=== PATIENT | female | born 1995 | race Caucasian/White ===

== ENCOUNTER 2018-08-01 07:05 | Inpatient (IN) | payer BC ==
[~2018-08-01] VITALS: Ht 177.8 cm; Wt 132.4 kg
[2018-08-01] VITALS (53 sets, daily range): BP systolic 114–148; BP diastolic 54–94
--- NOTE | 2018-08-01 07:15 | NUR ---
MIKE CRESPO presented to unit via AMBULATORY, accompanied by , FOR SCHEDULED INDUCTION OF LABOR. MIKE CRESPO weighed, gowned, voided, and to bed. EFHM and TOCO applied, VS taken. MIKE CRESPO oriented to bed controls, call light, TV, heat, and A/C controls.
--- NOTE | 2018-08-01 07:20 | NUR ---
THIS RN INTRODUCES SELF TO PT AND SO. PLAN OF CARE REVIEWED. QUESTIONS ANSWERED. CALL LIGHT WITHIN REACH.
[2018-08-01] MEDS ORDERED: D5 LR IV SOLUTION 1,000 ML IV ONE (07:36)
--- NOTE | 2018-08-01 08:04 | NUR ---
DR RANGEL CALLED BY THIS RN. PT REPORT. INDUCTION ORDERS RECEIVED. PITOCIN, GBS PROTOCOL WITH AMP, MAY GET EPIDURAL WHENEVER PT WANTS. DR RANGEL WILL SEE IF DR BENAVIDES IS AVAILABLE FOR AROM AROUND NOON TODAY.
[2018-08-01] MEDS ORDERED: AMPICILLIN FOR IV USE 2,000 MG in WATER (STERILE) FOR INJECTION 14.8 ML IV SCH (08:10)
[2018-08-01] MEDS ORDERED: D5 LR IV SOLUTION 1,000 ML IV SCH (08:10)
[2018-08-01] MEDS ORDERED: OXYTOCIN/NORMAL SALINE 500 ML IV SCH (08:10)
[2018-08-01] MEDS ORDERED: MINERAL OIL CONCENTRATE 99.9% 15 ML UDC TOP PRN (08:15)
[2018-08-01 08:17] LABS: BASOPHILS % (AUTO) 0 % (0-10); EOSINOPHILS # (AUTO) 0.1 10^3/uL (0.0-0.3); EOSINOPHILS % (AUTO) 1 % (0-10); HEMATOCRIT 39 % (35-52); HEMOGLOBIN 13.4 G/DL (11.5-16.0); LYMPHOCYTES # (AUTO) 2.3 X 10^3 (1.0-4.0); LYMPHOCYTES % (AUTO) 27 % (12-44); MEAN CORPUSCULAR HEMOGLOBIN 31 PG (25-34); MEAN CORPUSCULAR HGB CONC 34 G/DL (32-36); MEAN CORPUSCULAR VOLUME 90 FL (80-99); MEAN PLATELET VOLUME 9.7 FL (7.4-10.4); MONOCYTES # (AUTO) 0.5 X 10^3 (0.0-1.0); MONOCYTES % (AUTO) 6 % (0-12); NEUTROPHILS # (AUTO) 5.8 X 10^3 (1.8-7.8); NEUTROPHILS % (AUTO) 67 % (42-75); PLATELET COUNT 261 10^3/uL (130-400); RED CELL DISTRIBUTION WIDTH 12.8 % (10.0-14.5); WHITE BLOOD COUNT 8.7 10^3/uL (4.3-11.0)
[2018-08-01] MEDS ORDERED: FLU QUADRIvalent (5+ YOA) 2018-2019 (AFLURIA) 0.5 ML IM ONE (09:15)
--- NOTE | 2018-08-01 10:14 | NUR ---
dr dhillon called this rn for updated pt report. uc q2min pitocin on 10. pt feeling uc but not co pain at this time. no new orders.
[2018-08-01] MEDS ORDERED: SUFENTA 0.6MCG/ML BUPIVA 0.125 100 ML ONE (10:52)
--- NOTE | 2018-08-01 11:00 | NUR ---
DR BENAVIDES AT BEDSIDE FOR SVE AND AROM. THIN [facility]. NO NEW ORDERS. PT REQUESTS EPIDURAL AT THIS TIME. ANESTHESIA (ASHOK DAVISON) CALLED AT [phone] FOR EPIDURAL PLACEMENT
[2018-08-01] MEDS ORDERED: fentaNYL INJECTION 100 MCG/2 ML AMP ONE (11:22)
--- NOTE | 2018-08-01 11:51 | Labor Progress Note ---
Labor Progress Note Labor Progress Note Date Seen by Provider: Aug 01, 2018 Time Seen by Provider: 11:00 Subjective: Pt denies complaints. Objective: Cervical exam: /- Presentation: cephalic heart tones: 140 beats per minute, moderate variability, reactive Tocometer: 4-5 ctx/10 minutes Assessment/Plan: Edith Lea is a (22 /Para / ,Gestational Age (wks)40 here for IOL. AROM done with thin meconium fluid return CEFM/TOCO Continue pitocin Anticipate vaginal delivery. Vitals - Labs Vital Signs - I&O Vital Signs Date Time Temp Pulse Resp B/P (MAP) Pulse Ox O2 Delivery O2 Flow Rate FiO2 08/01/18 10:45 97.8 94 18 125/75 (92) Room Air 08/01/18 10:30 87 128/74 (92) Room Air 08/01/18 10:15 88 130/83 (99) Room Air 08/01/18 10:00 85 130/69 (89) Room Air 08/01/18 09:45 76 127/73 (91) Room Air 08/01/18 09:30 98.0 86 18 123/70 (87) Room Air 08/01/18 09:15 90 126/76 (93) Room Air 08/01/18 09:00 92 126/83 (97) Room Air 08/01/18 08:45 96 16 118/79 (92) Room Air 08/01/18 07:30 98.1 104 16 123/79 (94) 98 Room Air Labs Laboratory Tests 08/01/18 08:00: White Blood Count 8.7, Red Blood Count 4.37, Hemoglobin 13.4, Hematocrit 39, Mean Corpuscular Volume 90, Mean Corpuscular Hemoglobin 31, Mean Corpuscular Hemoglobin Concent 34, Red Cell Distribution Width 12.8, Platelet Count 261, Mean Platelet Volume 9.7, Neutrophils (%) (Auto) 67, Lymphocytes (%) (Auto) 27, Monocytes (%) (Auto) 6, Eosinophils (%) (Auto) 1, Basophils (%) (Auto) 0, Neutrophils # (Auto) 5.8, Lymphocytes # (Auto) 2.3, Monocytes # (Auto) 0.5, Eosinophils # (Auto) 0.1, Basophils # (Auto) 0.0 JAN BENAVIDES MD Aug 01, 2018 11:51
[2018-08-01] MEDS: AMPICILLIN FOR IV USE 1,000 MG in WATER (STERILE) FOR INJECTION 7.4 ML IV SCH ×2 (12:28→16:13)
--- NOTE | 2018-08-01 13:10 | NUR ---
dr dhillon called this rn for updated pt report. latest sve. pt just got epidural and is comfortable. pitocin rate. no new orders.
[2018-08-01] MEDS ORDERED: CATHETER FLUSH 10 ML SYR IV SCH ×2 (14:00→22:00)
[2018-08-01] MEDS ORDERED: LACTATED RINGERS 1,000 ML IV SCH (14:04)
[2018-08-01] MEDS ORDERED: ONDANSETRON 4 MG/2 ML (SDV) Z0FRAN IV PRN (14:15)
[2018-08-01] MEDS ORDERED: NALOXONE 0.4 MG/ML 1 ML (NARCAN) VIAL IV PRN ×2 (14:15)
[2018-08-01] MEDS ORDERED: EPIDURAL (SUFENTA 0.6MCG/ML BUPIVA 0.125%) 100 ML BAG EPI SCH (14:15)
[2018-08-01] MEDS ORDERED: METOCLOPRAMIDE INJ 10 MG/2 ML (REGLAN) IV PRN (14:15)
[2018-08-01] MEDS ORDERED: diphenhydrAMINE 50 MG/ML INJ (BENADRYL) IV PRN (14:15)
--- NOTE | 2018-08-01 15:15 | NUR ---
DR RANGEL CALLED THIS RN FOR UPDATED PT REPORT. SVE 5.5//-1, PT COMFORTABLE, NOT FEELING UC OR PRESSURE.
--- NOTE | 2018-08-01 16:52 | NUR ---
THIS RN CALLED DR RANGEL WITH UPDATED PT REPORT. SVE 0. DR RANGEL IS IN [facility], AT LEAST 30 MINUTES AWAY AND WILL HEAD THIS WAY FOR UPCOMING DELIVERY
--- NOTE | 2018-08-01 17:49 | NUR ---
DR RANGEL ON L&D FOR EXPECTED DELIVERY
--- NOTE | 2018-08-01 18:00 | NUR ---
1800 DR RANGEL AT BEDSIDE FOR SVE. 9.5CM, PREPARING PT AND ROOM FOR DELIVERY. 190 BERMUDEZ DC WITH 300ML URINE OUT OF CATHETER 181 BEGIN PUSHING 181 DELIVERY OF HEAD. 1814 DELIVERY OF BODY. DELIVERY TIME. BABY PLACED ON MOTHERS ABDOMEN BY DR RANGEL (90 SEC SHOULDER DYSTOCIA, CORD AROUND BODY) 1815 CORD CLAMPED AND CUT BY DR RANGEL 1817 PLACENTA DELIVERED SPONTANEOUSLY 300EBL, 2ND DEGREE LACERATION WITH REPAIR BY DR RANGEL APGARS: 184 RECOVERY PERIOD BEGINS 184 FUNDUS FIRM, MIDLINE, LEVEL WITH UMBILICUS, LIGHT BLEEDING. PT DENIES PAIN. PERICARE BY THIS RN. CALL LIGHT WITHIN REACH. SO REMAINS AT BEDSIDE. 190 FUNDUS FIRM, MIDLINE, LEVEL WITH UMBILICUS, LIGHT BLEEDING. PT DENIES PAIN. PERICARE BY THIS RN. CALL LIGHT WITHIN REACH. FAMILY REMAINS AT BEDSIDE. 1914 FUNDUS FIRM, MIDLINE, LEVEL WITH UMBILICUS, LIGHT BLEEDING. PT DENIES PAIN. PERICARE BY THIS RN. CALL LIGHT WITHIN REACH. SO REMAINS AT BEDSIDE. 1919 THIS RN GIVES REPORT TO EBONIE MCLEOD
[2018-08-01] MEDS: OXYTOCIN/NORMAL SALINE 500 ML IV SCH ×2 (18:18→18:40)
[2018-08-01] MEDS ORDERED: LIDOCAINE/EPI 2% 1:200,00 (XYLOCAINE) 10 ML VIAL INJ ONE (18:20)
[2018-08-01] MEDS ORDERED: LIDOCAINE/EPI 2% 1:200,00 (XYLOCAINE) 10 ML VIAL ONE (18:27)
--- NOTE | 2018-08-01 18:48 | History & Physical-OB ---
OB - Chief Complaint & HPI Date/Time Date of Admission: Date of Admission: Aug 01, 2018 at 07:05 Date seen by a Provider: Aug 01, 2018 Time Seen by a Provider: 17:30 Chief Complaint/History OB-Reason for Admission/Chief: Induction of Labor Hx : 2 Hx Para: 1 Expected Date of Delivery: Jul 31, 2018 Gestational Age in Weeks: 40 Gestational Age in Days: 1 Indication for induction: maternal discomfort Allergies and Home Medications Allergies Coded Allergies: No Known Drug Allergies (Unverified , 08/01/18) Patient Home Medication List Home Medication List Reviewed: Yes OB - History Hx of Present Ultrasounds: Normal mid trimester US Obstetrical Complications: None Medical Complications: None Delivery History Adverse Rxn to Tranfusion: No Patient Past Medical History previously healthy Social History/Family History Alcohol Use: Denies Use Recreational Drug Use: No OB - Admission Exam Physical Exam Vitals: Vital Signs 08/01/18 08/01/18 08/01/18 13:05 16:45 17:15 Temp 96.5 Pulse 88 Resp 16 B/P (MAP) 127/75 (92) Pulse Ox 97 O2 Delivery Room Air HEENT: NCAT Heart: Rhythm Normal Lungs: Clear Abdomen: Gravid Extremities: Normal Reflexes: Normal Cervical Dilatation: 9cm Effacement: 100% Station: +1 Membranes: Ruptured Amniotic Fluid: Thin Meconium Heart Rate: 140's Accelerations: Accelerations Present Decelerations: No Decelerations Short Term Variability: Present [facility] Nurse Variability: Average (6-25) Contractions on Admission: < 5 Minutes Apart Labs Laboratory Tests Test 08/01/18 08:00 Range/Units White Blood Count 8.7 4.3-11.0 10^3/uL Red Blood Count 4.37 4.35-5.85 10^6/uL Hemoglobin 13.4 11.5-16.0 G/DL Hematocrit 39 35-52 % Mean Corpuscular Volume 90 80-99 FL Mean Corpuscular Hemoglobin 31 25-34 PG Mean Corpuscular Hemoglobin Concent 34 32-36 G/DL Red Cell Distribution Width 12.8 10.0-14.5 % Platelet Count 261 130-400 10^3/uL Mean Platelet Volume 9.7 7.4-10.4 FL Neutrophils (%) (Auto) 67 42-75 % Lymphocytes (%) (Auto) 27 12-44 % Monocytes (%) (Auto) 6 0-12 % Eosinophils (%) (Auto) 1 0-10 % Basophils (%) (Auto) 0 0-10 % Neutrophils # (Auto) 5.8 1.8-7.8 X 10^3 Lymphocytes # (Auto) 2.3 1.0-4.0 X 10^3 Monocytes # (Auto) 0.5 0.0-1.0 X 10^3 Eosinophils # (Auto) 0.1 0.0-0.3 10^3/uL Basophils # (Auto) 0.0 0.0-0.1 10^3/uL OB - Assessment/Plan/Diagnosis Assessment Admission Dx 40 weeks here for induction; GBS positive. Admission Status: Inpatient Order (span 2 midnights) Reason for Inpatient Admission: Induction of labor at 40 weeks. Plan Plan: Induction Induction Method: per Pitocin Protocol Copy Copies To 1: MARVA RANGEL MD, KATRINA M MD Aug 01, 2018 18:47
--- NOTE | 2018-08-01 18:51 | OB Labor & Delivery Record ---
Vag Delivery Note Vag Delivery Note Date of Delivery: 08/01/18 Preoperative Diagnosis: Edith camarillo a (22 /Para / ,Gestational Age (wks)40with [term female infant] Postoperative Diagnosis: Same Surgeon: MARVA RANGEL Casting Agent: [none] Anesthesia: [epidural] Delivery Type: [] Findings: [] Viable [female] , apgars [3/4/7], weight [10 pounds 0 ounces] Lacerations: 2nd degree Intact placenta with 3 vessel cord. Loose bandolier cord Estimated Blood Loss: [300] ml Complications: Shoulder dystocia Condition: Stable Description of Procedure: The patient is a 22 year old female who presented [for induction of labor]. She was admitted and informed consent was obtained. Her labor course was remarkable for [GBS positive] She progressed to complete dilatation and began to push. She was then set up for delivery. The 's head was delivered atraumatically in the [OA] position. The right shoulder was anterior. Please see shoulder distocia note. The shoulders and remainder of the infant's body were then delivered without difficulty after 90 seconds. Upon delivery, the infant was placed on maternal abdomen and cord was cut after 60 seconds. An intact placenta with 3-vessel cord delivered via Christiano and there was found to be minimal bleeding.~ Vigorous fundal massage was performed and the fundus was found to be firm. IV oxytocin was given. Examination of the vagina and perineum revealed a [2nd] laceration repaired in the usual fashion with 3-0 vicryl suture. Following the repair, sponge, instrument and needle counts were correct. Mom and baby were both in stable condition in the labor suite. Vitals - Labs Vital Signs - I&O Vital Signs Date Time Temp Pulse Resp B/P (MAP) Pulse Ox O2 Delivery O2 Flow Rate FiO2 08/01/18 17:15 88 127/75 (92) Room Air 08/01/18 17:00 89 120/73 (89) Room Air 08/01/18 16:45 96.5 83 16 126/69 (88) Room Air 08/01/18 16:30 82 122/73 (89) Room Air 08/01/18 16:15 82 121/67 (85) Room Air 08/01/18 16:00 83 126/70 (88) Room Air 08/01/18 15:45 83 16 119/74 (89) Room Air 08/01/18 15:30 76 119/68 (85) Room Air 08/01/18 15:15 84 128/76 (93) Room Air 08/01/18 15:00 78 130/74 (92) Room Air 08/01/18 14:45 97.2 99 16 130/83 (99) Room Air 08/01/18 14:30 88 136/84 (101) Room Air 08/01/18 14:15 91 130/76 (94) Room Air 08/01/18 14:00 98.2 Room Air 08/01/18 13:45 93 125/77 (93) Room Air 08/01/18 13:30 94 16 120/94 (103) Room Air 08/01/18 13:15 88 118/77 (91) Room Air 08/01/18 13:05 100 117/67 (84) 97 Room Air 08/01/18 13:00 77 123/69 (87) 97 Room Air 08/01/18 12:55 81 132/68 (89) 98 Room Air 08/01/18 12:50 85 126/65 (85) 98 Room Air 08/01/18 12:45 97 126/63 (84) 97 Room Air 08/01/18 12:40 89 114/58 (76) 97 Room Air 08/01/18 12:35 84 126/61 (82) 97 Room Air 08/01/18 12:32 96 117/62 (80) 98 Room Air 08/01/18 12:30 110 133/62 (85) 98 Room Air 08/01/18 12:26 117 123/54 (77) 98 Room Air 08/01/18 12:23 113 136/65 (88) 98 Room Air 08/01/18 12:20 100 16 148/65 (92) 99 Room Air 08/01/18 12:15 98 129/81 (97) Room Air 08/01/18 12:00 89 16 126/73 (90) Room Air 08/01/18 11:45 87 129/70 (89) Room Air 08/01/18 11:30 98.0 88 133/71 (91) Room Air 08/01/18 11:15 97 137/74 (95) Room Air 08/01/18 11:00 100 136/77 (96) Room Air 08/01/18 10:45 97.8 94 18 125/75 (92) Room Air 08/01/18 10:30 87 128/74 (92) Room Air 08/01/18 10:15 88 130/83 (99) Room Air 08/01/18 10:00 85 130/69 (89) Room Air 08/01/18 09:45 76 127/73 (91) Room Air 08/01/18 09:30 98.0 86 18 123/70 (87) Room Air 08/01/18 09:15 90 126/76 (93) Room Air 08/01/18 09:00 92 126/83 (97) Room Air 08/01/18 08:45 96 16 118/79 (92) Room Air 08/01/18 07:30 98.1 104 16 123/79 (94) 98 Room Air Labs Laboratory Tests 08/01/18 08:00: White Blood Count 8.7, Red Blood Count 4.37, Hemoglobin 13.4, Hematocrit 39, Mean Corpuscular Volume 90, Mean Corpuscular Hemoglobin 31, Mean Corpuscular Hemoglobin Concent 34, Red Cell Distribution Width 12.8, Platelet Count 261, Mean Platelet Volume 9.7, Neutrophils (%) (Auto) 67, Lymphocytes (%) (Auto) 27, Monocytes (%) (Auto) 6, Eosinophils (%) (Auto) 1, Basophils (%) (Auto) 0, Neutrophils # (Auto) 5.8, Lymphocytes # (Auto) 2.3, Monocytes # (Auto) 0.5, Eosinophils # (Auto) 0.1, Basophils # (Auto) 0.0 MARVA RNAGEL MD Aug 01, 2018 18:51
--- NOTE | 2018-08-01 18:54 | OB Shoulder Dystocia Record ---
Shoulder Dystocia Note Shoulder Dystocia Start Time of Delivery of HEAD: 18:14 Time shoulder dystocia called: 18:15 HOB in lowered position: Yes Time of delivery of BODY: 18:15 Positional Maneuvers Berta Rotational Maneuvers Urbina II, Urbina II & Pathak Delivery Approach Delivery of posterior arm: Right MARVA RANGEL MD Aug 01, 2018 18:54
[2018-08-01] MEDS ORDERED: TETANUS,DIPTH,PERTUSS P/F (BOOSTRIX) 0.5 ML VIAL IM ONE (19:15)
[2018-08-01] MEDS ORDERED: BENZOCAINE/MENTHOL (DERMOPLAST) 56 ML CAN TP PRN (19:15)
[2018-08-01] MEDS ORDERED: WITCH HAZEL(TUCKS) 40 EA JAR TOP PRN (19:15)
[2018-08-01] MEDS ORDERED: MEASLES,MUMPS,RUBELLA 1 EA INJ SQ ONE (19:15)
[2018-08-01] MEDS: IBUPROFEN 600 MG (MOTRIN) TAB PO SCH (19:44)
--- NOTE | 2018-08-01 20:00 | NUR ---
assessment completed. pt denies any needs at this time. will continue to monitor.
--- NOTE | 2018-08-01 21:00 | NUR ---
LEONARDO CARE COMPLETED, PT ASSISTED TO W/C AND TAKEN TO NSY TO SEE NB
--- NOTE | 2018-08-01 22:10 | NUR ---
PT FINISHED IN NSY. PT ASSISTED TO W'C AND TAKEN TO ROOM 311. PT AMBULATED TO BATHROOM. POSITIVE VOID. PERICARE COMPLETED. PAD CHANGED. PT ORIENTATED TO ROOM. INFO PAPERS EXPLAINED. PT DENIES ANY NEEDS AT THIS TIME. WILL CONTINUE TO MONITOR.
[2018-08-02 00:34] VITALS: BP 124/76
[2018-08-02] MEDS: IBUPROFEN 600 MG (MOTRIN) TAB PO SCH ×4 (01:51→20:38)
[2018-08-02 05:30] VITALS: BP 128/84
[2018-08-02 05:53] LABS: BASOPHILS % (AUTO) 0 % (0-10); EOSINOPHILS # (AUTO) 0.1 10^3/uL (0.0-0.3); EOSINOPHILS % (AUTO) 1 % (0-10); HEMATOCRIT 38 % (35-52); HEMOGLOBIN 13.2 G/DL (11.5-16.0); LYMPHOCYTES # (AUTO) 2.5 X 10^3 (1.0-4.0); LYMPHOCYTES % (AUTO) 19 % (12-44); MEAN CORPUSCULAR HEMOGLOBIN 31 PG (25-34); MEAN CORPUSCULAR HGB CONC 35 G/DL (32-36); MEAN CORPUSCULAR VOLUME 89 FL (80-99); MEAN PLATELET VOLUME 9.2 FL (7.4-10.4); MONOCYTES % (AUTO) 7 % (0-12); NEUTROPHILS # (AUTO) 9.9 X 10^3 (1.8-7.8); NEUTROPHILS % (AUTO) 73 % (42-75); PLATELET COUNT 254 10^3/uL (130-400); WHITE BLOOD COUNT 13.5 10^3/uL (4.3-11.0)
--- NOTE | 2018-08-02 08:05 | NUR ---
PT ambulates self to nsy accompanied by S.O. to see .
--- NOTE | 2018-08-02 08:50 | NUR ---
To room to complete assessment, vs. Pt remains in nsy at this time. Will return.
[2018-08-02 09:25] VITALS: BP 123/70
--- NOTE | 2018-08-02 09:33 | Anesthesia-Regional Post-Op ---
Regional Patient Condition Mental Status: Alert, Oriented x3 Circulation: Same as Pre-Op Headache: Absent Sensation: Full Recovery Motor Block: Absent Post Op Complications Complications None Follow Up Care/Instructions Patient Instructions None needed. Anesthesia/Patient Condition Patient is doing well, no complaints, stable vital signs, no apparent adverse anesthesia problems. No complications reported per nursing. MOMO VILLALPANDO CRNA Aug 02, 2018 09:33
--- NOTE | 2018-08-02 11:45 | Progress Note (SOAP) ---
Subjective Subjective/Events-last exam Doing well. No complaints. Normal lochia Review of Systems Date Seen by Provider: Aug 02, 2018 Time Seen by Provider: 11:00 Objective Exam Last Set of Vital Signs Vital Signs Date Time Temp Pulse Resp B/P (MAP) Pulse Ox O2 Delivery O2 Flow Rate FiO2 08/02/18 05:30 97.5 80 18 128/84 (99) Room Air 08/01/18 13:05 97 Capillary Refill : I&O Intake and Output 08/02/18 00:00 Intake Total 3422.2 ml Balance 3422.2 ml Intake IV Total 3422.2 ml Daily Weight Change No General: Alert, Oriented X3, Cooperative Psych/Mental Status: Mood NL Results/Procedures Lab Laboratory Tests 08/02/18 05:44: White Blood Count 13.5H, Red Blood Count 4.23L, Hemoglobin 13.2, Hematocrit 38, Mean Corpuscular Volume 89, Mean Corpuscular Hemoglobin 31, Mean Corpuscular Hemoglobin Concent 35, Red Cell Distribution Width 13.0, Platelet Count 254, Mean Platelet Volume 9.2, Neutrophils (%) (Auto) 73, Lymphocytes (%) (Auto) 19, Monocytes (%) (Auto) 7, Eosinophils (%) (Auto) 1, Basophils (%) (Auto) 0, Neutrophils # (Auto) 9.9H, Lymphocytes # (Auto) 2.5, Monocytes # (Auto) 1.0, Eosinophils # (Auto) 0.1, Basophils # (Auto) 0.0 Assessment/Plan Assessment/Plan Assessment & Plan 1. PPD#1 s/p 08/01/18 2. 2nd degree laceration Anticipate DC home tomorrow. Clinical Quality Measures DVT/VTE Risk/Contraindication: Risk Factor Score Per Nursin RFS Level Per Nursing on Admit: 1=Low/No VTE PPX CHRISTOPHER MCCOY DO Aug 02, 2018 11:44
[2018-08-02 13:18] VITALS: BP 128/74
--- NOTE | 2018-08-02 16:00 | NUR ---
Report to Derrick Smalls RN
[2018-08-02 18:39] VITALS: BP 120/76
--- NOTE | 2018-08-02 20:38 | NUR ---
PT RESTING IN BED, ASSESSMENT COMPLETED. NO DISTRESS NOTED AT THIS TIME. WILL CONTINUE TO MONITOR.
[2018-08-03] VITALS: BP 129/73
[2018-08-03] MEDS: IBUPROFEN 600 MG (MOTRIN) TAB PO SCH ×2 (03:08→09:15)
[2018-08-03 06:00] VITALS: BP 109/56
[2018-08-03 09:15] VITALS: BP 120/68
--- NOTE | 2018-08-03 09:25 | NUR ---
Dr Killian to room to see pt.
[2018-08-03] MEDS ORDERED: IBUP-844 PO (09:43)
--- NOTE | 2018-08-03 09:53 | Discharge Summary ---
Diagnosis/Chief Complaint Date of Admission Aug 01, 2018 at 07:05 Date of Discharge Aug 03, 2018 Admission Diagnosis Admission Diagnosis 40 weeks here for induction; GBS positive. Discharge Diagnosis 1. PPD#2 s/p 08/01/18 2. 2nd degree laceration Discharge Summary-OBS Procedures None. Discharge Physical Examination Allergies: Coded Allergies: No Known Drug Allergies (Unverified , 08/01/18) Vitals & I&Os Vital Sign - Last 12Hours Date Time Temp Pulse Resp B/P (MAP) Pulse Ox O2 Delivery O2 Flow Rate FiO2 08/03/18 09:15 97.4 103 18 120/68 (85) 98 Room Air General Appearance: Alert, Oriented X3, Cooperative Psych/Mental Status: Mood NL Hospital Course Routine course. Discharge Instructions to patient/family Please see electronic discharge instructions given to patient. Discharge Medications Reviewed and agree with Discharge Medication list on patient's Discharge Instruction sheet Clinical Quality Measures DVT/VTE Risk/Contraindication: Risk Factor Score Per Nursin RFS Level Per Nursing on Admit: 1=Low/No VTE PPX CHRISTOPHER MCCOY DO Aug 03, 2018 09:53
[2018-08-03] MEDS ORDERED: MEASLES,MUMPS,RUBELLA 1 EA INJ ONE (13:47)
--- NOTE | 2018-08-03 14:21 | NUR ---
Ibuprofen script called in to [facility]
--- NOTE | 2018-08-03 14:30 | NUR ---
Discharge instructions explained to pt with copy provided to pt. Pt verbalizes understanding of teaching and signs to verify. Pt notified of scripts called to [facility]. Pt denies further questions or concerns at this time. Will call when ready for dismissal.
--- NOTE | 2018-08-03 14:50 | NUR ---
Pt ambulates self off unit accompanied by S.O., RN, and staff to private vehicle. All personal belongings with pt. No s/s of distress noted.
== END 2018-08-03 14:50 | disposition home or self-care (01) | DRG 807 ==
LOC: LDRP 07:05
PROVIDERS: ADMIT Family Medicine; ATTEND Family Medicine
PROC: 10E0XZZ Delivery of Products of Conception, External Approach (ICD-10-PCS; principal; 2018-08-01)
PROC: 0KQM0ZZ Repair Perineum Muscle, Open Approach (ICD-10-PCS; 2018-08-01)
DX: O70.1 Second degree perineal laceration during delivery (principal); O66.0 Obstructed labor due to shoulder dystocia; O77.0 Labor and delivery complicated by meconium in amniotic fluid; O69.82X0 Labor and delivery complicated by other cord entanglement, without compression, not applicable or unspecified; O99.820 Streptococcus B carrier state complicating pregnancy; Z3A.40 40 weeks gestation of pregnancy; Z37.0 Single live birth
CPT/HCPCS: 36415; 85025; 86850; 86900; 86901; 90707

== ENCOUNTER → 2019-09-08 | Outpatient (CLI) | payer BC ==
[~2019-09-08] MED LIST: IBUP-844 PO
== END ==
LOC: LABNPT 15:34
PROVIDERS: ATTEND Family Medicine
DX: Z34.80 Encounter for supervision of other normal pregnancy, unspecified trimester (principal)
CPT/HCPCS: 87081

== ENCOUNTER 2019-09-21 07:57 | Inpatient (IN) | payer BC ==
[~2019-09-21] VITALS: Ht 177.8 cm; Wt 148.7 kg
[2019-09-21] VITALS (48 sets, daily range): BP systolic 102–142; BP diastolic 56–89
[2019-09-21] MEDS ORDERED: AMPICILLIN FOR IV USE 2,000 MG VIAL ONE (07:58)
[2019-09-21] MEDS ORDERED: WATER (STERILE) FOR INJECTION 20 ML ONE (07:59)
[2019-09-21] MEDS ORDERED: D5 LR IV SOLUTION 1,000 ML IV ONE (07:59)
--- NOTE | 2019-09-21 08:02 | NUR ---
MIKE CRESPO presented to unit from ED, accompanied by , with c/o INDUCTION. MIKE CRESPO weighed, gowned, voided, and to bed. EFHM and TOCO applied, VS taken. MIKE CRESPO oriented to bed controls, call light, TV, heat, and A/C controls.
--- OUTSIDE RECORDS SUMMARY | 2019-09-21 08:02 | XMS REPORT | Continuity of Care Document ---
Author Organization Unknown Address Unknown Phone Unavailable Allergies Active Description Code Type Severity Reaction Onset Reported/Identified Relationship to Patient Clinical Status Yes No Known Drug Allergies [id number] Drug Allergy Unknown N/A 08/01/2018 Medications There is no data. Problems Date Dx Coded Attending Type Code Diagnosis Diagnosed By 08/03/2018 MARVA RANGEL MD Ot O66 .0 OBSTRUCTED LABOR DUE TO SHOULDER DYSTOCI 08/03/2018 MARVA RANGEL MD Ot O69.82X0 LABOR AND DEL COMP BY [facility] CORD ENTANGLE, 08/03/2018 MARVA RANGEL MD Ot O70 .1 SECOND DEGREE PERINEAL LACERATION DURING 08/03/2018 MARVA RANGEL MD Ot O77 .0 LABOR AND DELIVERY COMPLICATED BY MECONI 08/03/2018 MARVA RANGEL MD Ot O99.820 STREPTOCOCCUS B CARRIER STATE COMPLICATI 08/03/2018 MARVA RANGEL MD Ot Z37 .0 SINGLE LIVE 08/03/2018 MARVA RANGEL MD Ot Z3A.40 40 WEEKS GESTATION OF 09/09/2019 MARVA RANGEL MD Ot Z34.80 ENCOUNTER FOR SUPRVSN OF NORMAL PREGNANC Procedures Code Description Performed By Per anand On [id number] RE PAIR PERINEUM MUSCLE, OPEN APPROACH 08/01/2018 [id number] QUISPE OF PRODUCTS OF CONCEPTION, EXTE 08/01/2018 Results Test Result Range Complete blood count (CBC) with automate d white blood cell (WBC) differential - 08/01/18 08:00 Blood leukocytes automated count (number/volume) 8.7 10*3/uL 4.3-11.0 Blood erythrocytes automated count (number/volume) 4.37 10*6/uL 4.35-5.85 Venous blood hemoglobin measurement (mass/volume) 13.4 g/dL 11.5-16.0 Blood hematocrit (volume fraction) 39 % 35-52 Automated erythrocyte mean corpuscular volume 90 [ foz_us] 80-99 Automated erythrocyte mean corpuscular h emoglobin (mass per erythrocyte) 31 pg 25-34 Automated erythrocyte mean corpuscular h emoglobin concentration measurement (mass/volume) 34 g/dL 32-36 Automated erythrocyte distribution width ratio 12. 8 % 10.0- 14.5 Automated blood platelet count (count/volume) 261 10*3/uL 130-400 Automated blood platelet mean volume measurement 9.7 [foz_us] 7.4-10.4 Automated blood neutrophils/100 leukocytes 67 % 42-75 Automated blood lymphocytes/100 leukocytes 27 % 12-44 Blood monocytes/100 leukocytes 6 % 0-12 Automated blood eosinophils/100 leukocytes 1 % 0-10 Automated blood basophils/100 leukocytes 0 % 0-10 Blood neutrophils automated count (number/volume) 5.8 10*3 1.8-7.8 Blood lymphocytes automated count (number/volume) 2.3 10*3 1.0-4.0 Blood monocytes automated count (number/volume) 0. 5 10*3 0.0-1.0 Automated eosinophil count 0.1 10*3/uL 0 .0-0.3 Automated blood basophil count (count/volume) 0.0 10*3/uL 0.0-0.1 Blood type T Indirect antibody screen pa [place] - 08/01/18 08:00 ABO+Rh group AP NRG Transfusion band number [id number] NR Blood group antibody screen NEGATIVE NR G Complete blood count (CBC) with automate d white blood cell (WBC) differential - 08/02/18 05:44 Blood leukocytes automated count (number/volume) 13.5 10*3/uL 4.3-11.0 Blood erythrocytes automated count (number/volume) 4.23 10*6/uL 4.35-5.85 Venous blood hemoglobin measurement (mass/volume) 13.2 g/dL 11.5-16.0 Blood hematocrit (volume fraction) 38 % 35-52 Automated erythrocyte mean corpuscular volume 89 [ foz_us] 80-99 Automated erythrocyte mean corpuscular h emoglobin (mass per erythrocyte) 31 pg 25-34 Automated erythrocyte mean corpuscular h emoglobin concentration measurement (mass/volume) 35 g/dL 32-36 Automated erythrocyte distribution width ratio 13. 0 % 10.0- 14.5 Automated blood platelet count (count/volume) 254 10*3/uL 130-400 Automated blood platelet mean volume measurement 9.2 [foz_us] 7.4-10.4 Automated blood neutrophils/100 leukocytes 73 % 42-75 Automated blood lymphocytes/100 leukocytes 19 % 12-44 Blood monocytes/100 leukocytes 7 % 0-12 Automated blood eosinophils/100 leukocytes 1 % 0-10 Automated blood basophils/100 leukocytes 0 % 0-10 Blood neutrophils automated count (number/volume) 9.9 10*3 1.8-7.8 Blood lymphocytes automated count (number/volume) 2.5 10*3 1.0-4.0 Blood monocytes automated count (number/volume) 1. 0 10*3 0.0-1.0 Automated eosinophil count 0.1 10*3/uL 0 .0-0.3 Automated blood basophil count (count/volume) 0.0 10*3/uL 0.0-0.1 RUBELLA IMMUNE STATUS - 03/27/19 09:28 RUBELLA ANTIBODY (IGG) 3.10 index NRG CULTURE, URINE - 03/27/19 09:28 CULTURE, URINE, ROUTINE SEE NOTE NRG A1C - 03/27/19 09:28 HEMOGLOBIN A1c 4.7 % of total Hgb <5.7 QNATAL - 03/27/19 09:28 NUMBER OF FETUSES? 1 NRG ADVANCED MATERNAL AGE? NOT GIVEN NRG ABNORMAL CECIL? NO NRG ABNORMAL US? NO NRG PERSONAL/FAM HISTORY? YES NRG INTERPRETATION SEE NOTE NRG TRISOMY 21 (T21) Negative NRG TRISOMY 18 (T18) Negative NRG TRISOMY 13 (T13) Negative NRG Y CHROMOSOME Not detected NRG Y CHR. INTERPRETATION SEE NOTE NRG SEX CHROMOSOME No aneuploidy NRG SEX CHROMOSOME INTERP SEE NOTE NRG MICRODELETION Not detected NRG MICRODELETION INTERP SEE NOTE NRG GESTATIONAL AGE(IN WEEKS) 12 NRG GESTATIONAL AGE (IN DAYS) 5 NRG FRACTION 8.18% NRG LABORATORY COMMENTS SEE NOTE NRG LIMITATIONS SEE NOTE NRG SPECIFICATIONS SEE NOTE NRG METHODOLOGY SEE NOTE NRG Streptococcus agalactiae detection by or ganism specific culture - 09/08/19 15:49 QUANTITY OF GROWTH . NRG FTX;REPORTABLE RML REPORT OF 09/08 15:06: NRG FREE TEXT ENTRY 2 CULTURE POSITIVE FOR STREPTOCOCC US NRG FREE TEXT ENTRY 3 AGALACTIAE (GROUP B) NRG Streptococcus agalactiae detection by organism specifi c culture [id number] NRG Encounters ACCT No. Visit Date/Time Discharge Status Pt. Type Provider Facility Loc./Unit Complaint [id number] 04/22/2019 11:00:00 04/22/2019 23:59: 59 CLS Outpatient MARVA RANGEL [facility] [id number] 03/27/2019 08:40:00 Document Registration [id number] 09/08/2019 15:34:00 020 23:59:59 CLS Outpatient MARVA RANGEL MD [facility] LABNPT [id number] 08/01/2018 07:05:00 019 14:50:00 DIS Inpatient MARVA RANGLE MD [facility] LDRP INDUCTION OF LABOR [id number] 09/23/2019 08:00:00 P EN Preadmit MARVA RANGEL MD INDUCTION
--- NOTE | 2019-09-21 08:10 | NUR ---
Dr. Ward notified of patient's arrival. New orders received.
[2019-09-21] MEDS ORDERED: OXYTOCIN PRE-MIX DRIP 500 ML IV SCH ×2 (08:13→17:14)
[2019-09-21] MEDS ORDERED: D5 LR IV SOLUTION 1,000 ML IV SCH (08:13)
[2019-09-21] MEDS ORDERED: MINERAL OIL CONCENTRATE 99.9% 15 ML UDC TOP PRN (08:15)
[2019-09-21] MEDS ORDERED: AMPICILLIN FOR IV USE 2,000 MG in WATER (STERILE) FOR INJECTION 14.8 ML IV ONE (08:30)
[2019-09-21 08:52] LABS: BILIRUBIN,URINE NEGATIVE (NEGATIVE); CLARITY,URINE CLEAR; COLOR,URINE AMBER; GLUCOSE, URINE (UA) NEGATIVE (NEGATIVE); KETONES,URINE NEGATIVE (NEGATIVE); LEUKOCYTE ESTERASE ,URINE TRACE (NEGATIVE); NITRITE,URINE NEGATIVE (NEGATIVE); PROTEIN,URINE TRACE (NEGATIVE)
[2019-09-21 08:53] LABS: BASOPHILS % (AUTO) 0 % (0-10); EOSINOPHILS # (AUTO) 0.1 10^3/uL (0.0-0.3); EOSINOPHILS % (AUTO) 1 % (0-10); HEMATOCRIT 40 % (35-52); HEMOGLOBIN 13.9 G/DL (11.5-16.0); LYMPHOCYTES # (AUTO) 1.9 X 10^3 (1.0-4.0); LYMPHOCYTES % (AUTO) 24 % (12-44); MEAN CORPUSCULAR HEMOGLOBIN 31 PG (25-34); MEAN CORPUSCULAR HGB CONC 35 G/DL (32-36); MEAN CORPUSCULAR VOLUME 91 FL (80-99); MEAN PLATELET VOLUME 9.7 FL (7.4-10.4); MONOCYTES # (AUTO) 0.5 X 10^3 (0.0-1.0); MONOCYTES % (AUTO) 7 % (0-12); NEUTROPHILS # (AUTO) 5.4 X 10^3 (1.8-7.8); NEUTROPHILS % (AUTO) 68 % (42-75); PLATELET COUNT 226 10^3/uL (130-400); RED CELL DISTRIBUTION WIDTH 13.4 % (10.0-14.5)
--- NOTE | 2019-09-21 08:55 | NUR ---
Dr. Ward updated on patient's status. New orders received.
[2019-09-21 09:03] LABS: BACTERIA,URINE FEW /HPF; RBC,URINE RARE /HPF
[2019-09-21] MEDS ORDERED: fentaNYL 2 mcg/ml BUPIVA 0.125 100 ML ONE (09:05)
[2019-09-21] MEDS ORDERED: BUPIVACAINE 0.25% 30 ML (SENSORCAINE) VIAL ONE (09:19)
[2019-09-21] MEDS ORDERED: fentaNYL INJECTION 100 MCG/2 ML AMP ONE (09:19)
--- NOTE | 2019-09-21 09:20 | NUR ---
Hussain [address]agen[address] SQL PROGRAMMER here for epidural placement. Procedure explained, consent reviewed and signed by anesthesia. Questions answered to patient's satisfaction. Time out taken to verify correct patient/procedure. Patient up to side of bed, assisted into sitting position. Betadine prep done x3 and sterile drape applied. Local done, see anesthesia record. Test dose given, see anesthesia record for drug and dosage. Epidural catheter secured in place. Epidural placement complete. Assisted back into bed, monitors adjusted. Epidural dosed, see anesthesia record. Epidural of Fentanyl/Bupivicaine @ 12cc/hr stated per pump. Patient tolerated procedure well.
[2019-09-21] MEDS ORDERED: PREN1TAB79 PO (09:51)
[2019-09-21] MEDS ORDERED: LACTATED RINGERS 1,000 ML IV SCH (09:52)
[2019-09-21] MEDS ORDERED: METOCLOPRAMIDE INJ 10 MG/2 ML (REGLAN) IV PRN (10:00)
[2019-09-21] MEDS ORDERED: NALOXONE 0.4 MG/ML 1 ML (NARCAN) VIAL IV PRN ×2 (10:00)
[2019-09-21] MEDS ORDERED: ONDANSETRON 4 MG/2 ML (SDV) Z0FRAN IV PRN (10:00)
[2019-09-21] MEDS ORDERED: EPIDURAL (fentaNYL 2 MCG/ML BUPIVA 0.125%)100 ML BAG EPI PRN (10:00)
[2019-09-21] MEDS ORDERED: diphenhydrAMINE 50 MG/ML INJ (BENADRYL) IV PRN (10:00)
[2019-09-21] MEDS ORDERED: AMPICILLIN FOR IV USE 1,000 MG in WATER (STERILE) FOR INJECTION 7.4 ML IV SCH (12:30)
[2019-09-21] MEDS ORDERED: CATHETER FLUSH 10 ML SYR IV SCH ×2 (14:00→22:00)
[2019-09-21] MEDS ORDERED: LIDOCAINE/EPI 2% 1:200,00 (XYLOCAINE) 20 ML VIAL ONE (16:02)
[2019-09-21] MEDS ORDERED: BENZOCAINE/MENTHOL (DERMOPLAST) 60 ML CAN TP PRN (17:15)
[2019-09-21] MEDS ORDERED: TETANUS,DIPTH,PERTUSS P/F (BOOSTRIX) 0.5 ML VIAL IM ONE (17:15)
[2019-09-21] MEDS ORDERED: WITCH HAZEL(TUCKS) 40 EA JAR TOP PRN (17:15)
[2019-09-21] MEDS ORDERED: MEASLES,MUMPS,RUBELLA 1 EA INJ SQ ONE (17:15)
--- NOTE | 2019-09-21 17:18 | History & Physical-OB ---
OB - Chief Complaint & HPI Date/Time Date of Admission: Date of Admission: Sep 21, 2019 at 07:57 Date seen by a Provider: Sep 21, 2019 Time Seen by a Provider: 16:40 Chief Complaint/History OB-Reason for Admission/Chief: Induction of Labor Hx : 3 Hx Para: 3 Expected Date of Delivery: October 04, 2019 Gestational Age in Weeks: 38 Gestational Age in Days: 1 Indication for induction: other (macrosomia) Admission Nurse Assessment Rev: Yes Allergies and Home Medications Allergies Coded Allergies: No Known Drug Allergies (Unverified , 08/01/18) Home Medications Vit W-Ca,Fe,FA(<1 mg) 1 Each Tablet, 1 EACH PO DAILY, (Reported) Patient Home Medication List Home Medication List Reviewed: Yes OB - History Hx of Present Ultrasounds: Normal mid trimester US, Other (large for gestational age) Obstetrical Complications: None Medical Complications: None Delivery History Adverse Rxn to Tranfusion: No Patient Past Medical History previously healthy Social History/Family History HIV/AIDS: No Recent Infectious Disease Expo: No Sexually Transmitted Disease: No Alcohol Use: Denies Use Recreational Drug Use: No OB - Admission Exam Physical Exam Vitals: Vital Signs 09/21/19 09/21/19 13:00 15:00 Temp 37.2 Pulse 88 Resp 18 B/P (MAP) 126/66 (86) Pulse Ox 100 O2 Delivery Room Air HEENT: NCAT Heart: Rhythm Normal Lungs: Clear Abdomen: Gravid Extremities: Normal Reflexes: Normal Cervical Dilatation: 10cm Effacement: 100% Station: +2 Membranes: Ruptured Amniotic Fluid: Thin Meconium Heart Rate: 130's Accelerations: Accelerations Present Decelerations: No Decelerations Short Term Variability: Present Entry Level Machine Operator Variability: Average (6-25) Labs Laboratory Tests Test 09/21/19 08:10 09/21/19 08:30 Range/Units Urine Color ROSALEE H Urine Clarity CLEAR Urine pH 6.0 5-9 Urine Specific [place] 1.020 1.016-1.022 Urine Protein TRACE H NEGATIVE Urine Glucose (UA) NEGATIVE NEGATIVE Urine Ketones NEGATIVE NEGATIVE Urine Nitrite NEGATIVE NEGATIVE Urine Bilirubin NEGATIVE NEGATIVE Urine Urobilinogen 0.2 < = 1.0 MG/DL Urine Leukocyte Esterase TRACE H NEGATIVE Urine RBC (Auto) NEGATIVE NEGATIVE Urine RBC RARE /HPF Urine WBC 2-5 /HPF Urine Squamous Epithelial Cells 5-10 /HPF Urine Crystals NONE /LPF Urine Bacteria FEW H /HPF Urine Casts NONE /LPF Urine Mucus MODERATE H /LPF Urine Culture Indicated YES White Blood Count 8.0 4.3-11.0 10^3/uL Red Blood Count 4.42 4.35-5.85 10^6/uL Hemoglobin 13.9 11.5-16.0 G/DL Hematocrit 40 35-52 % Mean Corpuscular Volume 91 80-99 FL Mean Corpuscular Hemoglobin 31 25-34 PG Mean Corpuscular Hemoglobin Concent 35 32-36 G/DL Red Cell Distribution Width 13.4 10.0-14.5 % Platelet Count 226 130-400 10^3/uL Mean Platelet Volume 9.7 7.4-10.4 FL Neutrophils (%) (Auto) 68 42-75 % Lymphocytes (%) (Auto) 24 12-44 % Monocytes (%) (Auto) 7 0-12 % Eosinophils (%) (Auto) 1 0-10 % Basophils (%) (Auto) 0 0-10 % Neutrophils # (Auto) 5.4 1.8-7.8 X 10^3 Lymphocytes # (Auto) 1.9 1.0-4.0 X 10^3 Monocytes # (Auto) 0.5 0.0-1.0 X 10^3 Eosinophils # (Auto) 0.1 0.0-0.3 10^3/uL Basophils # (Auto) 0.0 0.0-0.1 10^3/uL OB - Assessment/Plan/Diagnosis Assessment Assessment: induction of labor Admission Dx Induction of labor at 38 1/7 wga for macrosomia Admission Status: Inpatient Order (span 2 midnights) Reason for Inpatient Admission: Induction of labor. Plan Plan: Induction Induction Method: per Pitocin Protocol Other Plan GBS positive- treated with 2 doses; epidural for pain MARVA RANGEL MD Sep 21, 2019 17:18
--- NOTE | 2019-09-21 17:20 | OB Labor & Delivery Record ---
Vag Delivery Note Vag Delivery Note Date of Delivery: 09/21/19 Preoperative Diagnosis: Edith caamrillo a (23 /Para / ,Gestational Age (wks)38with [1 day] Postoperative Diagnosis: Same Surgeon: MARVA RANGEL Tech Ed/Woodshop Teacher: [none] Anesthesia: [epidural] Delivery Type: [] Findings: [] Viable [female] infant, apgars [8/9], weight [9 pounds 14 ounces] Lacerations: Intact placenta with 3 vessel cord. No nuchal cord. Estimated Blood Loss: [300] ml Complications: None Condition: Stable Description of Procedure: The patient is a 23 year old female who presented [for induction of labor]. She was admitted and informed consent was obtained. Her labor course was remarkable for [macrosomia] She progressed to complete dilatation and began to push. She was then set up for delivery. The 's head was delivered atraumatically in the [OA] position. The shoulders and remainder of the infant's body were then delivered without difficulty. Upon delivery, the head was held below the level of the perineum and the mouth and nares were bulb suctioned. The cord was doubly clamped and cut and the was handed off to the pediatric staff. An intact placenta with 3-vessel cord delivered via [place] and there was found to be minimal bleeding.~ Vigorous fundal massage was performed and the fundus was found to be firm. IV oxytocin was given. Examination of the vagina and perineum revealed a [1st degree] laceration repaired in the usual fashion with 3-0 vicryl suture. Following the repair, sponge, instrument and needle counts were correct. Mom and baby were both in stable condition in the labor suite. Vitals - Labs Vital Signs - I&O Vital Signs Date Time Temp Pulse Resp B/P (MAP) Pulse Ox O2 Delivery O2 Flow Rate FiO2 09/21/19 15:00 37.2 88 18 126/66 (86) Room Air 09/21/19 14:45 93 18 126/62 (83) Room Air 09/21/19 14:30 86 18 129/66 (87) Room Air 09/21/19 14:15 85 18 122/74 (90) Room Air 09/21/19 14:00 88 18 137/74 (95) Room Air 09/21/19 13:45 37.3 89 18 134/71 (92) Room Air 09/21/19 13:30 82 18 125/69 (87) Room Air 09/21/19 13:15 81 18 117/67 (84) Room Air 09/21/19 13:00 85 18 126/65 (85) 100 Room Air 09/21/19 12:45 80 18 131/72 (91) 100 Room Air 09/21/19 12:30 83 18 125/64 (84) 100 Room Air 09/21/19 12:15 36.8 81 18 119/64 (82) 100 Room Air 09/21/19 12:00 76 18 123/69 (87) 99 Room Air 09/21/19 11:45 82 18 126/87 (100) 99 Room Air 09/21/19 11:30 37.1 90 18 116/70 (85) 99 Room Air 09/21/19 11:15 80 18 120/73 (89) 98 Room Air 09/21/19 11:00 80 18 121/75 (90) 98 Room Air 09/21/19 10:45 76 18 121/74 (90) 97 Room Air 09/21/19 10:30 76 18 122/78 (93) 98 Room Air 09/21/19 10:15 88 18 132/68 (89) 98 Room Air 09/21/19 10:00 94 18 130/59 (82) 97 Room Air 09/21/19 09:45 37.7 96 18 134/67 (89) 98 Room Air 09/21/19 09:41 102 18 135/65 (88) 99 Room Air 09/21/19 09:38 88 18 135/73 (93) 99 Room Air 09/21/19 09:36 94 18 134/72 (92) 99 Room Air 09/21/19 09:35 86 18 132/64 (86) 99 Room Air 09/21/19 09:33 75 18 136/61 (86) 100 Room Air 09/21/19 09:30 93 18 135/81 (99) 100 Room Air 09/21/19 09:20 87 18 134/81 (98) 100 Room Air 09/21/19 09:00 95 18 142/87 (105) Room Air 09/21/19 08:30 37.2 95 18 134/87 (103) 98 Room Air 4/27/20 08:02 37.2 95 20 98 Room Air Labs Laboratory Tests 09/21/19 08:10: Urine Color AMBERH, Urine Clarity CLEAR, Urine pH 6.0, Urine Specific [place] 1.020, Urine Protein TRACEH, Urine Glucose (UA) NEGATIVE, Urine Ketones NEGATIVE, Urine Nitrite NEGATIVE, Urine Bilirubin NEGATIVE, Urine Urobilinogen 0.2, Urine Leukocyte Esterase TRACEH, Urine RBC (Auto) NEGATIVE, Urine RBC RARE, Urine WBC 2-5, Urine Squamous Epithelial Cells 5-10, Urine Crystals NONE, Urine Bacteria FEWH, Urine Casts NONE, Urine Mucus MODERATEH, Urine Culture Indicated YES 09/21/19 08:30: White Blood Count 8.0, Red Blood Count 4.42, Hemoglobin 13.9, Hematocrit 40, Mean Corpuscular Volume 91, Mean Corpuscular Hemoglobin 31, Mean Corpuscular Hemoglobin Concent 35, Red Cell Distribution Width 13.4, Platelet Count 226, Mean Platelet Volume 9.7, Neutrophils (%) (Auto) 68, Lymphocytes (%) (Auto) 24, Monocytes (%) (Auto) 7, Eosinophils (%) (Auto) 1, Basophils (%) (Auto) 0, Neutrophils # (Auto) 5.4, Lymphocytes # (Auto) 1.9, Monocytes # (Auto) 0.5, Eosinophils # (Auto) 0.1, Basophils # (Auto) 0.0 MARVA RANGEL MD Sep 21, 2019 17:20
[2019-09-21] MEDS ORDERED: ACETAMINOPHEN 500 MG TAB (TYLENOL) PO SCH (18:00)
[2019-09-21] MEDS ORDERED: IBUPROFEN 800 MG (MOTRIN) TAB PO ONE (18:53)
--- NOTE | 2019-09-21 19:00 | NUR ---
Fundus firm U/2 with small rubra lochia noted. No clots. Pericare completed and clean pad and panties applied.
--- NOTE | 2019-09-21 19:10 | NUR ---
Patient transferred via wheelchair to room 310. Patient oriented to room and bed controls. Patient denies any current questions or concerns at this time.
--- NOTE | 2019-09-21 19:25 | NUR ---
Report to Jonathan Shea RN.
[2019-09-21] MEDS: ACETAMINOPHEN 500 MG TAB (TYLENOL) PO SCH (20:23)
[2019-09-21] MEDS: DOCUSATE SODIUM 100 MG (COLACE) CAP PO SCH (20:23)
[2019-09-21] MEDS ORDERED: IBUPROFEN 800 MG (MOTRIN) TAB PO SCH (22:00)
[2019-09-22 00:09] VITALS: BP 111/76
[2019-09-22] MEDS: IBUPROFEN 800 MG (MOTRIN) TAB PO SCH ×3 (00:09→13:05)
[2019-09-22 03:59] VITALS: BP 120/76
[2019-09-22] MEDS: ACETAMINOPHEN 500 MG TAB (TYLENOL) PO SCH (03:59)
[2019-09-22 05:55] LABS: BASOPHILS % (AUTO) 0 % (0-10); EOSINOPHILS # (AUTO) 0.1 10^3/uL (0.0-0.3); EOSINOPHILS % (AUTO) 1 % (0-10); HEMATOCRIT 37 % (35-52); HEMOGLOBIN 12.4 G/DL (11.5-16.0); LYMPHOCYTES # (AUTO) 2.2 X 10^3 (1.0-4.0); LYMPHOCYTES % (AUTO) 22 % (12-44); MEAN CORPUSCULAR HEMOGLOBIN 31 PG (25-34); MEAN CORPUSCULAR HGB CONC 34 G/DL (32-36); MEAN CORPUSCULAR VOLUME 91 FL (80-99); MEAN PLATELET VOLUME 9.8 FL (7.4-10.4); MONOCYTES # (AUTO) 0.8 X 10^3 (0.0-1.0); MONOCYTES % (AUTO) 8 % (0-12); NEUTROPHILS % (AUTO) 69 % (42-75); PLATELET COUNT 184 10^3/uL (130-400); RED CELL DISTRIBUTION WIDTH 13.4 % (10.0-14.5); WHITE BLOOD COUNT 10.1 10^3/uL (4.3-11.0)
--- NOTE | 2019-09-22 07:38 | NUR ---
Dr. Ward here to see patient. New orders received.
[2019-09-22 08:42] VITALS: BP 117/77
[2019-09-22] MEDS: DOCUSATE SODIUM 100 MG (COLACE) CAP PO SCH (08:42)
--- NOTE | 2019-09-22 08:42 | NUR ---
AM shift assessment completed and vital signs obtained, see interventions. Plan of care reviewed with patient. Patient verbalizes understanding and questions answered. Scheduled Motrin and Colace PO given. Shower supplies provided. Anjum RACHEL'leelee, tip intact.
[2019-09-22] MEDS ORDERED: IBUP-1780 PO (12:53)
--- NOTE | 2019-09-22 12:54 | Discharge Summary ---
Discharge Inst-[facility] Reconcile Patient Problems Problems Reviewed?: Yes Depart Medications New, Converted or Re-Newed RX: Transmitted to Pharmacy Follow Up/Instructions Goal/Follow Up: Dr. Rangel in 6 weeks Activity Activity: Activity as Tolerated Driving Instructions: You May Drive NO SMOKING: NO SMOKING Nothing Inside Vagina: No Douching, No [place], No Tampons Diet Discharge Diet: No Restrictions Symptoms to Report to : Fever Over 101 Degrees F, Vaginal Bleeding Increase For Any Problems or Questions: Contact Your Physician MARVA RANGEL MD Sep 22, 2019 12:54
--- NOTE | 2019-09-22 12:56 | Discharge Summary ---
Diagnosis/Chief Complaint Date of Admission Sep 21, 2019 at 07:57 Date of Discharge September 22, 2019 Admission Diagnosis Admission Diagnosis Term induction of labor at 38 1/7 wga for macrosomia. Discharge Diagnosis Term vaginal delivery. Problems/Diagnosis: (1) care following vaginal delivery Discharge Summary-OBS Procedures None. Discharge Physical Examination Allergies: Coded Allergies: No Known Drug Allergies (Unverified , 08/01/18) Vitals & I&Os Intake and Output 09/22/19 00:00 Intake Total 2007.4 ml Balance 2007.4 ml Vital Sign - Last 12Hours Date Time Temp Pulse Resp B/P (MAP) Pulse Ox O2 Delivery O2 Flow Rate FiO2 09/22/19 08:42 36.5 102 18 117/77 (90) 98 Room Air General Appearance: Alert, Oriented X3 HEENT: Atraumatic Respiratory: Clear to Auscultation Cardiovascular: Regular Rate Abdominal: Other (fundus firm below umbilicus) Extremities: No Edema Psych/Mental Status: Mental Status NL Hospital Course Was the Problem List Reviewed?: Yes Patient was induced and delivered vaginally. course was uneventful. Labs Laboratory Tests 09/22/19 05:09: White Blood Count 10.1, Red Blood Count 4.00L, Hemoglobin 12.4, Hematocrit 37, Mean Corpuscular Volume 91, Mean Corpuscular Hemoglobin 31, Mean Corpuscular Hemoglobin Concent 34, Red Cell Distribution Width 13.4, Platelet Count 184, Mean Platelet Volume 9.8, Neutrophils (%) (Auto) 69, Lymphocytes (%) (Auto) 22, Monocytes (%) (Auto) 8, Eosinophils (%) (Auto) 1, Basophils (%) (Auto) 0, Neutrophils # (Auto) 7.0, Lymphocytes # (Auto) 2.2, Monocytes # (Auto) 0.8, Eosinophils # (Auto) 0.1, Basophils # (Auto) 0.0 Microbiology 09/21/19 Urine Culture - Preliminary, Resulted Culture In Progress Discharge Instructions to patient/family Please see electronic discharge instructions given to patient. Discharge Medications Reviewed and agree with Discharge Medication list on patient's Discharge Instruction sheet Clinical Quality Measures DVT/VTE Risk/Contraindication: Risk Factor Score Per Nursin RFS Level Per Nursing on Admit: 1=Low/No VTE PPX MARVA RANGEL MD Sep 22, 2019 12:56
[2019-09-22 13:05] VITALS: BP 120/77
--- NOTE | 2019-09-22 13:43 | NUR ---
Discharge instructions and medications reviewed with patient both written and verbally. Patient verbalizes understanding and denies any current questions or concerns at this time. Patient reports [facility] in [place]. Will call in prescription for ibuprofen.
--- NOTE | 2019-09-22 17:40 | NUR ---
Patient moved to [facility] r/t "[facility] Warning."
--- NOTE | 2019-09-22 19:15 | NUR ---
Patient discharged at this time and ambulated down to awaiting private vehicle accompanied by this RN. No signs or symptoms of distress noted.
--- NOTE | 2019-09-23 08:45 | Anesthesia-Regional Post-Op ---
Regional Patient Condition Mental Status: Alert, Oriented x3 Circulation: Same as Pre-Op Headache: Absent Sensation: Full Recovery Motor Block: Absent Post Op Complications Complications None Follow Up Care/Instructions Patient Instructions None needed. Anesthesia/Patient Condition Patient was doing well, no complaints, stable vital signs, no apparent adverse anesthesia problems. No complications reported per nursing, thus she was discharged yesterday (09/22/19) afternoon. MARISOL CAUSEY CRNA Sep 23, 2019 08:45
== END 2019-09-22 19:15 | disposition home or self-care (01) | DRG 807 ==
LOC: LDRP 07:57
PROVIDERS: ADMIT Family Medicine; ATTEND Family Medicine
PROC: 10E0XZZ Delivery of Products of Conception, External Approach (ICD-10-PCS; principal; 2019-09-21)
PROC: 0HQ9XZZ Repair Perineum Skin, External Approach (ICD-10-PCS; 2019-09-21)
PROC: 3E033VJ Introduction of Other Hormone into Peripheral Vein, Percutaneous Approach (ICD-10-PCS; 2019-09-21)
DX: O36.63X0 Maternal care for excessive fetal growth, third trimester, not applicable or unspecified (principal); Z37.0 Single live birth; O70.0 First degree perineal laceration during delivery; O99.824 Streptococcus B carrier state complicating childbirth; O99.62 Diseases of the digestive system complicating childbirth; K21.9 Gastro-esophageal reflux disease without esophagitis; Z3A.38 38 weeks gestation of pregnancy; Z23 Encounter for immunization
CPT/HCPCS: 36415; 81000; 85025; 86850; 86900; 86901; 87088; 90715